=== PATIENT | male | born 1955 | race Caucasian/White ===

== ENCOUNTER → 2017-04-23 | Day surgery (SDC) | payer OTHER ==
[~2017-04-23] VITALS: Ht 165.1 cm; Wt 86.2 kg
[~2017-04-23] MED LIST: CARV6.252 PO; DABI150C PO; LIP40 PO; Lactated Ringer's 1,000 ML IV ONE; Lactated Ringer's 1,000 ML IV SCH; MetoCLOpramide 5 mg/mL 2 mL Inj IVPUSH PRN; OMEG1CAP56 PO; Ondansetron 2 mg/mL 2 mL Inj IVPUSH PRN; TAMS0.4C98 PO
[2017-04-23 15:08] VITALS: BP 116/85; PULSE 87; RESP 16; O2SAT 97
--- NOTE | 2017-04-23 15:29 | PCM.HPANE ---
Patient Data Date of Service: Apr 23, 2017 Surgeon Admitting Provider: Attending Provider:Paul Clark MD Primary Care Physician:Juan M Sutton DO Other Provider:Mendez Tobin Anesthesia Reason for Visit Bowel Habits Changes Ht/WT & BMI Height (Feet): 5 Height (Inches): 5 Weight (Kilograms): 86.18 Body Mass Index 31.00 Allergies Coded Allergies: No Known Drug Allergies (Verified Allergy, Unknown, 04/23/17) Past Anesthesia History Anesthesia History: Denies:: Abnormal Airway, Anesthesia Reactions, Difficult Intubation, Fam Anesthesia Reaction, Fam Malignant Hypertherm, Malignant Hyperthermia Diabetes History Hx Diabetes?: No MRSA MRSA: No Medications Blood Thinner: Pradaxa Last Dose Blood Thinner: Apr 20, 2017 Hypertension Medication: No Home Meds Incl Beta Teresa: Yes Date Beta Teresa Taken: Apr 23, 2017 Time Beta Teresa Taken: 0830 Reported Medications Tamsulosin (Flomax)0.4 Mg Capsule0.4 Mg PO DAILY Ref 0 09/12/16 Dabigatran Etexilate Mesylate (Pradaxa)150 Mg [id number] Mg PO BID 30 Days 09/12/16 [place]-3 Fatty Acids/Fish Oil ([place] 3 1,000 mg Softgel)1 Each Capsule4 Each PO HS 09/12/16 Carvedilol 6.25 Mg Tablet6.25 Mg PO BID Ref 0 09/12/16 Atorvastatin (Lipitor)40 Mg [id number] Mg PO DAILY Ref 0 09/12/16 History History of ENT Problems?: No HEENT History: Denies:: Abnormal Airway Difficult Intubation Dysphagia Hearing Problem Denture Type: None Teeth Condition: Within Normal Limits Hx of Heart Problems?: Yes Cardiovascular History: Positive for:: Atrial Fibrillation Hypertension Irregular Heartbeat Denies:: AICD Cardiac Surgery Chest Pain Pacemaker Valvular Heart Disease Hx of Respiratory Problem?: No Respiratory History: Denies:: Asthma COPD Cough Hemoptysis Pneumonia Tuberculosis Hx Neurologic Problems?: No Neurological History: Denies:: CVA Hx of GI Problems?: Yes Hx of Problems?: Yes (prostatitis) Hx Musculoskeletal Problems?: No Musculoskeletal History: Denies:: Fibromyalgia Joint Replacement Hx of Psycho/Social Problems?: No Psycho Social History: Denies:: Anxiety Hx Depression Hx Surgeries?: No Hx Any Other Health Problems?: Yes Other History: Denies:: Cancer Hospitalization Thyroid Disease History Blood Transfusions: Denies:: Blood Transfuse Reaction Blood Transfusions Hx Diabetes: No Hx Alcohol Use: No (stopped a couple months ago)Hx Substance Use: No Stop/Bang Treated for Sleep Apnea?: No (scheduled for sleep study) Do You Have a CPAP Machine?: No S-Snoring: Do You Snore Loudly: Yes T-Tired: feel tired, fatigued: No O-Obsered: Observed not breath: No P-Blood Pressure: treated: Yes B- Body Mass Index > 35 kg/m2: No A- Age over 50: Yes N- Neck Large Circumference: No G- Gender Male: Yes TRACEE Total Score: 4 TRACEE Risk Assessment: High Risk, =/>3 Yes Risk Assessment Category Category 1A: Patient has history of documented sleep apnea, and HAS NOT received any narcotic, sedative or anesthesia administration during this stay. Category 1B: Patient has history of documented sleep apnea, and HAS received any narcotic , sedative or anesthesia administration during this stay Category 2: Patient has SUSPECTED Obstructive Sleep Apnea, and HAS received any narcotic , sedative or anesthesia administration during this stay. Category 3: Patient has SUSPECTED Obstructive Sleep Apnea and HAS NOT received narcotic, sedative or anesthesia administration during this stay. Category 4: Outpatient in Procedural Areas with known sleep apnea or who screen positive for High Risk via the STOP/BANG questionnaire. Exam Exam Vital Signs Vital Signs Date Time Temp Pulse Resp B/P Pulse Ox O2 Delivery O2 Flow Rate FiO2 04/23/17 15:08 36.4 87 16 116/85 97 Room Air General Appearance: Alert, Oriented X3, Cooperative HEENT/AIRWAY: MP 1 Lungs: Clear to Auscultation Heart: Exam Unremarkable Meds/Labs/Diagnostics Admission Meds Current Medications Lactated Ringer's (Lr) 1,000 ml @ 10 mls/hr Q24H ONCE IV Last administered on 04/23/17t 15:17; Start 04/23/17 at 06:00; Stop 04/24/17 at 05:59 Plan Impression Patient chart reviewed, patient interviewed and anesthestic plan with risks, benefits, and alternatives discussed, and informed consent obtained. NPO per Anesth. Guidelines: Yes ASA Physical Status: ASA3 Severe Disease Anesthetic Plan: MAC Bene/Risks/Altern/Consents: Yes HP Complete Prior to Induction: Yes Missael Villegas MD Apr 23, 2017 15:29
--- NOTE | 2017-04-23 15:55 | PCM.ENDCOL ---
Colonoscopy Date of Service: Apr 23, 2017 Physician Paul Clark MD Pre Procedure Diagnosis: Screening Post Procedure Dx & Findings: Hemorrhoids Procedure Colonoscopy PROCEDURE IN DETAIL: Sedation given by anesthesiology Prep adequate Withdrawal time 9 minutes After unremarkable rectal examination the Olympus video colonoscope was inserted patient's anal canal and was advanced to cecum. Landmarks were identified including the ileocecal valve and appendiceal orifice. Scope was withdrawn systematically. Visualized colonic mucosa showed healthy shiny mucosa with normal healthy-appearing vasculature. In the rectum retroflexion was done which showed hemorrhoids. Anal canal was inspected carefully on the way out and hemorrhoids noted. Impression No personal or family history of colon cancer polyp Hemorrhoids Recommendation Repeat colonoscopy 10 years Presedation Assessment Risks and Benefits Informed consent was obtained from the patient after all risks and benefits including but not limited to drug reaction, infection, pain, bleeding, perforation, as well as alternatives were discussed. Patient monitoring Continuous pulse oximetry, cardiac monitoring, blood pressure monitoring, IV access, and oxygen at 2L per nasal cannula. Complications There were no periprocedural complications identified. Post Procedure Plan Post Procedure Recommendations 1. Restrict activities today. 2. Resume normal activities in the morning. 3. Resume medications. 4. Patient informed of normal post procedure side effects as bloating, drowsiness, blood streaking in the stool. 5. average risk CRCS. If colon polyps come back as: -Hyperplastic- can repeat colonoscopy in 10 years -Tubular adenoma- repeat colonoscopy in 5 years -Tubulovillous/villous adenoma- repeat colonoscopy in 3 years -If any dysplasia- return to clinic as soon as possible 6. Please don't hesitate to call me with any questions. Paul Clark MD Apr 23, 2017 15:55
[2017-04-23 15:57] VITALS: BP 90/67; PULSE 83; RESP 12; O2SAT 96
--- NOTE | 2017-04-23 16:04 | PCM.ANEP1 ---
Post Anesthesia PACU Phase 1 Assessment Vital Signs Vital Signs Date Time Temp Pulse Resp B/P Pulse Ox O2 Delivery O2 Flow Rate FiO2 04/23/17 15:57 83 12 90/67 96 Room Air 04/23/17 15:08 36.4 87 16 116/85 97 Room Air Anesthetic Administered: MAC Level of Alertness: Sleepy, easy to arouse Pain: No Nausea or Vomiting: No CV Function & Hydration Stable: Yes Airway Device: Oxygen Delivery: Room Air Lungs: Clear to Auscultation PACU Phase 2 Assessment Patient Instructions Provided: N/A Missael Villegas MD Apr 23, 2017 16:04
[2017-04-23 16:06] VITALS: BP 100/62; PULSE 81; RESP 14; O2SAT 96
[2017-04-23 16:09] VITALS: BP 112/68; PULSE 80; RESP 14; O2SAT 96
== END | disposition home or self-care (01) ==
LOC: END 00:35
PROVIDERS: ATTEND Internal Medicine
DX: Z12.11 Encounter for screening for malignant neoplasm of colon (principal); K64.8 Other hemorrhoids; I11.0 Hypertensive heart disease with heart failure; E78.5 Hyperlipidemia, unspecified; I48.0 Paroxysmal atrial fibrillation; I50.30 Unspecified diastolic (congestive) heart failure; Z79.01 Long term (current) use of anticoagulants
CPT/HCPCS: G0121; J7120